=== PATIENT | male | born 1975 | race Caucasian/White ===

== ENCOUNTER 2016-12-11 11:11 | Emergency (ER) | payer OTHER ==
[~2016-12-11] VITALS: Ht 182.9 cm; Wt 129.3 kg
[~2016-12-11 11:11] MED LIST: GENTAMICIN SUL IV; LASIX20 MG; LEVOPHED DRIP IV; METHADONE10 MG/1 M2 PO; NORMAL SALINE1000 ML IV; RIFAMPIN300 MG PO; VANCOMYCIN HC1000 MG IV
[2016-12-11 11:17] VITALS: BP 121/63
--- NOTE | 2016-12-11 11:25 | ED ANKLE/FOOT INJURY COMPLAINT ---
History of Present Illness General Chief Complaint: Foot or Ankle Injury Stated Complaint: PT HAS A WOUND ON THE TOP OF THE LT FOOT Source: patient Exam Limitations: no limitations Vital Signs & Intake/Output Vital Signs & Intake/Output ED Intake and Output 12/12 0000 12/11 1200 Intake Total Output Total Balance Patient 285 lb Weight Allergies Coded Allergies: oxacillin (Severe, HIVES 12/11/16) Reconcile Medications Cephalexin (Keflex) 500 MG CAPSULE 1 CAP PO TID INFECTION Furosemide 40 MG TABLET 1 TAB PO DAILY WATER RETENTION (Reported) Methadone HCl 10 MG/ML ORAL.CONC 90 MG PO DAILY MAINTENCE (Reported) Metoprolol Tartrate 25 MG TABLET 1 TAB PO BID HEART (Reported) Naproxen 500 MG TABLET 1 TAB PO BID PRN PAIN TAKE WITH FOOD Triage Note: PT COMPLAINS OF PAIN TO TOP OF HIS L FOOT, STATES THAT IT HAS BEEN GOING ON FOR WEEKS, PMD STARTED HIM ON BACTRIN WHICH HE FINISHED. PT NOTED WITH REDNESS. STATES THAT PAIN IS WORSE IN AM. REFUSES MEDS AT TRIAGE AND STTAES THAT HE TAKES 90 MG METHADONE A DAY Triage Nurses Notes Reviewed? yes Duration: FEW MONTHS Timing: recent history Severity: mild Pain/Injury Location: Left: Foot. Modifying Factors: Worsens With: other (IN AM AND WITH WALKING). HPI: This is a 41-year-old male with significant past medical history for endocarditis, status post valve replacement who presents to the ER for chief complaint of wound to the top of his left foot for the past few months. There is an open area but denies any drainage. He states the pain is exquisite in the morning and gets better in the afternoon. His primary care doctor put him on a course of Bactrim which she completed which he states did nothing. Patient denies any fever or chills. He is Past History Travel History Traveled to [place] past 21 day No Medical History Any Pertinent Medical History? 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 No Review of Systems Review of Systems Constitutional: Denies: chills, fever. EENTM: Reports: no symptoms. Respiratory: Denies: cough, short of breath. Cardiovascular: Denies: chest pain. GI: Denies: abdominal pain. Genitourinary: Reports: no symptoms. Musculoskeletal: Reports: see HPI (CHRONIC WOUND), muscle pain. Skin: Reports: no symptoms. Neurological/Psychological: Reports: no symptoms. Hematologic/Endocrine: Denies: bruising, bleeding, polyuria, polydipsia. Immunologic/Allergic: Denies: splenectomy. All Other Systems: Reviewed and Negative Physical Exam Physical Exam General Appearance: well developed/nourished, alert, awake, mild distress, obese Head: atraumatic, normal appearance Eyes: Bilateral: other (2 MM PUPILS). Ears, Nose, Throat: normal pharynx, hearing grossly normal Neck: normal inspection, supple, full range of motion Leg/Knee/Thigh Left: CHRONIC SKIN CHANGES FEW OPEN WOUNDS, NO ACTIVE DRAINAGE Leg/Knee/Thigh Right: normal range of motion, RLE CHRONIC VENOUS STASIS CHANGES Ankle Left: normal inspection, normal range of motion Ankle Right: normal range of motion, swelling Foot Left: swelling, 5 MM OPENING TOP OF LEFT FOOT WITH CHRONIC SKIN CHANGES AROUND IT Foot Right: swelling Neuro/Vascular: normal motor function Tendon: normal tendon function Psychiatric: awake, alert, oriented x 3 Progress Differential Diagnosis: cellulitis, NON HEALING WOUND, DEPENDENT EDEMA, OSTEOMYELITIS Plan of Care: Orders Procedure Date/time Status BLOOD CULTURE 12/11 1130 Active WESTERGREN SED RATE 12/11 1130 Complete COMPREHENSIVE METABOLIC PANEL 12/11 1130 Complete CBC WITHOUT DIFFERENTIAL 12/11 113 Complete Laboratory Tests 12/11/16 1135: Anion Gap 12, Estimated GFR 56 L, BUN/Creatinine Ratio 14.3, Glucose 113 H, Calcium 9.2, Total Bilirubin 0.4, AST 35, ALT 48, Alkaline Phosphatase 69, Total Protein 6.5, Albumin 3.9, Globulin 2.6, Albumin/Globulin Ratio 1.5, CBC w Diff NO MAN DIFF REQ, RBC 4.53 L, MCV 85.5, MCH 29.1, RDW 14.2, MPV 8.3, Gran % 72.4 , Lymphocytes % 16.7 L, Monocytes % 8.4, Eosinophils % 1.6, Basophils % 0.9, Absolute Granulocytes 4.3, Absolute Lymphocytes 1.0 L, Absolute Monocytes 0.5, Absolute Eosinophils 0.1, Absolute Basophils 0.1, PUBS MCHC 34.1, ESR Westergren 20 H Microbiology 12/11 1134 BLOOD: Blood Culture - RECD Diagnostic Imaging: Viewed by Me: Radiology Read. Discussed w/RAD: Radiology Read. Radiology Impression: PATIENT: SUMAN DE LA GARZA PRESENT AGE: 41 PATIENT ACCOUNT NO: [id number] : 74 LOCATION: [facility] ORDERING PHYSICIAN: VALERIA CHINCHILLA MD SERVICE DATE: 12/11/16 EXAM TYPE: RAD - XRY-FOOT COMPLETE, LEFT EXAMINATION: XR FOOT, LEFT CLINICAL INFORMATION: Open wound to the top of left foot. COMPARISON: None TECHNIQUE: AP, lateral, and oblique views of the left foot. FINDINGS: There is no visible acute fracture, dislocation or periosteal elevation. Overall the soft tissues are normal except for subtle abrasion along the dorsal foot at the tarso-metatarsal junction. IMPRESSION: No bony or joint abnormality seen. Minimal soft tissue ulceration/ abrasion along the dorsal foot at the tarsometatarsal junction. DICTATED BY: ARI NEWSOME MD DATE/TIME DICTATED:12/11/161209 WIRED MUSIC OPERATOR:CARLENE DATE/TIME TRANSCRIBED:12/11/161209 CONFIDENTIAL, DO NOT COPY WITHOUT APPROPRIATE AUTHORIZATION. <Electronically signed in Other Vendor System> SIGNED BY: ARI NEWSOME MD 12/11/161215 Departure Departure Time of Disposition: 1326 Disposition: HOME OR SELF CARE Condition: Stable Clinical Impression Primary Impression: Wound, open, foot Referrals: CINDI BLACKWELL APRN (PCP/Family) ROCIO QUARLES,ERLIN BURNS MD,GEORGES Additional Instructions: Take antibiotics as directed and the pain medication as prescribed. Follow-up with the automatic mold sander listed. Place topical asthmatic ointment over the wounds. Elevate the legs as much as possible. Departure Forms: Customer Survey General Discharge Information Prescriptions: Current Visit Scripts Cephalexin (Keflex) 1 CAP PO TID #30 CAP Naproxen 1 TAB PO BID PRN PAIN #30 TAB TAKE WITH FOOD
[2016-12-11 11:48] LABS: ABSOLUTE BASOPHIL COUNT 0.1 /CUMM (0.0-0.2); ABSOLUTE EOSINOPHIL COUNT 0.1 /CUMM (0.0-0.7); ABSOLUTE GRANULOCYTE CT 4.3 /CUMM (1.4-6.5); ABSOLUTE MONOCYTE COUNT 0.5 /CUMM (0.10-0.60); BASOPHIL % 0.9 % (0.0-2.0); EOSINOPHIL % 1.6 % (0-5); GRANULOCYTE % 72.4 % (42.2-75.2); HEMATOCRIT 38.7 % (42-52); MEAN CORPUSCULAR HGB 29.1 PG (27.0-31.0); MEAN CORPUSCULAR HGB CONC 34.1 G/DL (33.0-37.0); MEAN CORPUSCULAR VOLUME 85.5 FL (80.0-94.0); MEAN PLATELET VOLUME 8.3 FL (7.4-10.4); PLATELET COUNT 158 /CUMM (130-400); RBC DISTRIBUTION WIDTH 14.2 % (11.5-14.5); RED BLOOD CELL CT 4.53 /CUMM (4.70-6.10); WHITE BLOOD CELL COUNT 5.9 /CUMM (4.8-10.8)
--- NOTE | 2016-12-11 12:16 | RADIOLOGY REPORT ---
EXAMINATION: XR FOOT, LEFT CLINICAL INFORMATION: Open wound to the top of left foot. COMPARISON: None TECHNIQUE: AP, lateral, and oblique views of the left foot. FINDINGS: There is no visible acute fracture, dislocation or periosteal elevation. Overall the soft tissues are normal except for subtle abrasion along the dorsal foot at the tarso-metatarsal junction. IMPRESSION: No bony or joint abnormality seen. Minimal soft tissue ulceration/abrasion along the dorsal foot at the tarsometatarsal junction.
[2016-12-11] MEDS ORDERED: METOPROLOL TART25 M1 PO (12:37)
[2016-12-11] MEDS ORDERED: FUROSEMIDE40 M1 PO (12:37)
[2016-12-11] MEDS ORDERED: KEFLEX500 M1 PO ×2 (13:32)
[2016-12-11] MEDS ORDERED: NAPROXEN500 M2 PO (13:33)
== END 2016-12-11 13:33 ==
LOC: ERH 11:11
PROVIDERS: Emergency Medicine
DX: S91.302A Unspecified open wound, left foot, initial encounter (principal); X58.XXXA Exposure to other specified factors, initial encounter; Y92.9 Unspecified place or not applicable; Y93.9 Activity, unspecified
CPT/HCPCS: 73630-LT; 87040

== ENCOUNTER 2017-01-01 08:40 | Emergency (ER) | payer OTHER ==
[~2017-01-01] VITALS: Ht 182.9 cm; Wt 124.7 kg
[~2017-01-01 08:40] MED LIST changes: +FUROSEMIDE40 M1 PO; +KEFLEX500 M1 PO; +METOPROLOL TART25 M1 PO; +NAPROXEN500 M2 PO
--- NOTE | 2017-01-01 09:17 | ED ANKLE/FOOT INJURY COMPLAINT ---
History of Present Illness General Chief Complaint: Foot or Ankle Injury Stated Complaint: L FOOT WOUND Source: patient Exam Limitations: no limitations Vital Signs & Intake/Output Vital Signs & Intake/Output Vital Signs Date Time Temp Pulse Resp B/P B/P Pulse O2 O2 Flow FiO2 Mean Ox Delivery Rate 01/01 1032 97.7 76 12 112/58 97 Room Air 01/01 0842 97.4 100 18 133/84 96 Room Air Allergies Coded Allergies: oxacillin (Severe, HIVES 12/11/16) Reconcile Medications Cephalexin (Keflex) 500 MG CAPSULE 1 CAP PO TID INFECTION Furosemide 40 MG TABLET 1 TAB PO DAILY WATER RETENTION (Reported) Methadone HCl 10 MG/ML ORAL.CONC 90 MG PO DAILY MAINTENCE (Reported) Metoprolol Tartrate 25 MG TABLET 1 TAB PO BID HEART (Reported) Naproxen 500 MG TABLET 1 TAB PO BID PRN PAIN TAKE WITH FOOD Triage Note: PT STATES THAT HE HAS HAD A WOUND TO TOP OF HIS FOOT FOR ABOUT 2 MONTHS , WAS SEEN 2 WEEKS AGO FOR THE SAME AND STARTED ON ABT. PT STATES THATPAIN IS INCREASING. NOTE WITH REDNESS AND WARMTH TO AREA. ALSO COMPLAINS OF ABD CRAMPING AND WHEN HE MOVES HIS BOWELS , DESCRIBES BM ALL GEL Triage Nurses Notes Reviewed? yes Occurred: just prior to arrival Duration: week(s):, constant Timing: recent history Severity: moderate, severe Pain/Injury Location: Left: Foot. No Modifying Factors: none HPI: 41-year-old male comes into emergency room with complaints of wound to left foot. Symptoms began going on for months. Patient was seen here couple weeks ago. Patient reports pain. He is supposed to see a vascular doctor in a couple days. Former IV drug user. Denies any fever or flulike symptoms or vomiting. Denies any other associated symptoms. Difficulty walking on the foot. (LIO MONTOYA) Past History Travel History Traveled to [place] past 21 day No Medical History Any Pertinent Medical History? 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 No (LIO MONTOYA) Review of Systems Review of Systems Constitutional: Reports: no symptoms. EENTM: Reports: no symptoms. Respiratory: Reports: no symptoms. Cardiovascular: Reports: no symptoms. GI: Reports: no symptoms. Genitourinary: Reports: no symptoms. Musculoskeletal: Reports: see HPI. Skin: Reports: see HPI. Neurological/Psychological: Reports: no symptoms. Hematologic/Endocrine: Reports: no symptoms. Immunologic/Allergic: Reports: no symptoms. All Other Systems: Reviewed and Negative (LIO MONTOYA) Physical Exam Physical Exam General Appearance: well developed/nourished, mild distress Head: atraumatic Eyes: Bilateral: normal appearance. Ears, Nose, Throat: normal ENT inspection, hearing grossly normal Neck: normal inspection Cardiovascular/Respiratory: no respiratory distress Back: normal inspection Leg/Knee/Thigh Left: normal range of motion Foot Left: cracking of skin, open sore on the dorsum of foot, cap refill intact, mild erythema and warmth, tenderness with palpation, healed sores on left lower leg, cracking of skin going up entire leg, Neuro/Vascular: normal sensation Tendon: normal tendon function Psychiatric: awake, alert, oriented x 3 Skin: intact, normal color, warm/dry (LIO MONTOYA) Progress Differential Diagnosis: DVT, arterial insufficiency, cellulitis, septic arthritis, gout, fracture, dislocation, sprain, contusion, compartmental syndrome, osteomyelitis Plan of Care: Orders Procedure Date/time Status [facility] SED RATE 01/02 912 Complete C-REACTIVE PROTEIN 01/02 912 Complete CBC WITHOUT DIFFERENTIAL 01/02 912 Complete BASIC METABOLIC PANEL 01/02 912 Complete Laboratory Tests 01/01/17 0916: Anion Gap 11, Estimated GFR > 60, BUN/Creatinine Ratio 18.3, Glucose 183 H, Calcium 9.1, C-Reactive Prot, Quant 2.3 H, CBC w Diff NO MAN DIFF REQ, RBC 4.57 L, MCV 83.3, MCH 28.7, RDW 13.3, MPV 8.3, Gran % 79.4 H, Lymphocytes % 11.8 L , Monocytes % 7.0, Eosinophils % 1.7, Basophils % 0.1, Absolute Granulocytes 6.7 H, Absolute Lymphocytes 1.0 L, Absolute Monocytes 0.6, Absolute Eosinophils 0.1, Absolute Basophils 0, PUBS MCHC 34.4, ESR Westergren 23 H Diagnostic Imaging: Viewed by Me: Radiology Read. Discussed w/RAD: Radiology Read. Comments: SERVICE DATE: 01/01/17 EXAM TYPE: RAD - XRY-FOOT COMPLETE, LEFT EXAMINATION: XR FOOT, LEFT CLINICAL INFORMATION: Left foot pain. Open sores. Rule out osteomyelitis. COMPARISON: 12/11/2016 TECHNIQUE: AP, lateral, and oblique views of the left foot. FINDINGS: No fracture or dislocation. Alignment is anatomic. Joint spaces are maintained. No erosive osseous changes. Tiny Achilles heel spur. No ankle joint effusion. No gross soft tissue abnormality. Previous dorsal ulceration is no longer seen. IMPRESSION: No fracture or malalignment. No erosive osseous changes to suggest osteomyelitis. DICTATED BY: TRISTA LAO,MANI DATE/TIME DICTATED:01/01/17935 DOCTOR OF PODIATRIC MEDICINE:CARLENE DATE/TIME TRANSCRIBED:01/01/17935 CONFIDENTIAL, DO NOT COPY WITHOUT APPROPRIATE AUTHORIZATION. (LIO MONTOYA) Departure Departure Disposition: HOME OR SELF CARE Condition: Stable Clinical Impression Primary Impression: Wound, open, foot Referrals: CINDI BLACKWELL APRN (PCP/Family) ERLIN CHAN DPM Additional Instructions: Follow-up with steam hand provided. You are going to need good wound care. Follow up with the vascular surgeon in 2 days as already scheduled. Return if any concerns worsening symptoms. Please go over all results of today's visit with your primary care doctor. Contact your primary care doctor to let them know you were here in the emergency room. There may be nonspecific findings which may not be related to your visit today here in the emergency room but may require further evaluation and chronic monitoring by your primary care doctor. If you had a laceration today the chance of foreign body always remains. You should follow-up with your primary care doctor for recheck in 3-5 days for a wound check. If you had an x-ray done there is a chance that a fracture could have been missed on initial read and you should follow-up with your primary care doctor for repeat x-rays if symptoms persist. If your blood pressure was elevated here in the emergency room please have rechecked by her primary care doctor within the next 48 hours by your primary care doctor. If you were prescribed a narcotic here in the emergency room or any type of controlled substances you're not allowed to drive while taking this medication or operate any type of heavy machinery. Narcotics can make you feel lightheaded dizziness nausea and can cause constipation. You may need to turkey picker a stool softener. Thank you for choosing [facility] emergency room. Please return to the emergency room immediately if you have any other concerns worsening of symptoms. Departure Forms: Customer Survey General Discharge Information Comments 01/01/2017 11:19:54 AM There is no evidence of osteomyelitis. Patient clinically looks well. Wound appears to be chronic in nature. Afebrile. No white count. At this time patient will be held on antibiotics. Patient needs follow-up with steam hand as well as vascular doctor for good wound care. Patient does not want to wait for the sedimentation rate to come back. Patient wants to leave. Patient was instructed to go over the results with his doctor. Return if any other concerns worsening symptoms. (LIO OMNTOYA) PA/EARLY CHILDHOOD SERVICES COORDINATOR Co-Sign Statement Statement: ED Attending supervision documentation- [] I saw and evaluated the patient. I have also reviewed all the pertinent lab results and diagnostic results. I agree with the findings and the plan of care as documented in the PA's/EARLY CHILDHOOD SERVICES COORDINATOR's documentation. [X] I have reviewed the ED Record and agree with the PA's/EARLY CHILDHOOD SERVICES COORDINATOR's documentation. [] Additions or exceptions (if any) to the PAs/EARLY CHILDHOOD SERVICES COORDINATOR's note and plan are summarized below: [] (RENÉE LAO,VALERIA)
[2017-01-01 09:24] LABS: ABSOLUTE BASOPHIL COUNT 0 /CUMM (0.0-0.2); ABSOLUTE EOSINOPHIL COUNT 0.1 /CUMM (0.0-0.7); ABSOLUTE GRANULOCYTE CT 6.7 /CUMM (1.4-6.5); ABSOLUTE MONOCYTE COUNT 0.6 /CUMM (0.10-0.60); BASOPHIL % 0.1 % (0.0-2.0); EOSINOPHIL % 1.7 % (0-5); GRANULOCYTE % 79.4 % (42.2-75.2); HEMATOCRIT 38.1 % (42-52); MEAN CORPUSCULAR HGB 28.7 PG (27.0-31.0); MEAN CORPUSCULAR HGB CONC 34.4 G/DL (33.0-37.0); MEAN CORPUSCULAR VOLUME 83.3 FL (80.0-94.0); MEAN PLATELET VOLUME 8.3 FL (7.4-10.4); PLATELET COUNT 158 /CUMM (130-400); RBC DISTRIBUTION WIDTH 13.3 % (11.5-14.5); RED BLOOD CELL CT 4.57 /CUMM (4.70-6.10); WHITE BLOOD CELL COUNT 8.5 /CUMM (4.8-10.8)
--- NOTE | 2017-01-01 09:41 | RADIOLOGY REPORT ---
EXAMINATION: XR FOOT, LEFT CLINICAL INFORMATION: Left foot pain. Open sores. Rule out osteomyelitis. COMPARISON: 12/11/2016 TECHNIQUE: AP, lateral, and oblique views of the left foot. FINDINGS: No fracture or dislocation. Alignment is anatomic. Joint spaces are maintained. No erosive osseous changes. Tiny Achilles heel spur. No ankle joint effusion. No gross soft tissue abnormality. Previous dorsal ulceration is no longer seen. IMPRESSION: No fracture or malalignment. No erosive osseous changes to suggest osteomyelitis.
[2017-01-01 10:32] VITALS: BP 112/58
== END 2017-01-01 10:59 ==
LOC: ERH 08:40
PROVIDERS: Physician Assistant Medical
DX: S91.302A Unspecified open wound, left foot, initial encounter (principal); Y92.9 Unspecified place or not applicable; Y93.9 Activity, unspecified
CPT/HCPCS: 73630-LT